=== PATIENT | male | born 1970 | race Caucasian/White ===

== ENCOUNTER 2017-05-22 21:06 | Emergency (ER) | payer OTHER ==
[2017-05-22 21:49] VITALS: BP 163/91; PULSE 107; RESP 16; TEMP 99; O2SAT 100
--- NOTE | 2017-05-23 01:59 | ED PDOC ---
- ECG O2 Sat by Pulse Oximetry: 100 - Progress ED Course And Treament: 0000 Signed out to me pending xrays. 0158 Elbow x-ray: fx at bone spur; no elbow fracture; no fat pad sign Knee x-ray fx. X-ray results d/w pt. Informed of need for posterior elbow splint but refused. Knee immobilized in immobilizer applied by networking technology instructorVida mathew. Crutches provided. Instructed to f/u with orthopedist for further evaluation. Disposition - Clinical Impression Clinical Impression: Bone spur, Knee injury - POA Present On Arrival: None - Disposition Referrals: Quincy Stubbs MD [Medical Doctor] - J [facility] Sparks [Outside] Disposition: Routine/Home Disposition Time: 02:00 Condition: STABLE Additional Instructions: Follow up with orthopedist for further evaluation. Instructions: Knee Sprain (ED), Crutch Instructions (ED), Elbow Sprain (ED), RICE Therapy (ED), Knee Immobilizer (ED) Forms: [employer] (Polish), [facility] ED School/Work Excuse Print Language: OCCITAN
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
== END 2017-05-23 02:25 | disposition home or self-care (01) ==
LOC: H.ER 21:06
DX: M77.9 Enthesopathy, unspecified (principal); S89.90XA Unspecified injury of unspecified lower leg, initial encounter
CPT/HCPCS: 29530; 73080; 73562; 90471; 90715; 99282; L1830